=== PATIENT | male | born 1975 ===

== ENCOUNTER 2017-01-31 14:32 | Outpatient (CLI) | payer MEDICAID | END 2017-01-31 14:33 | disposition home or self-care (01) | LOC: LABHHL 14:32 | PROVIDERS: ATTEND Internal Medicine Gastroenterology | DX: K29.51 Unspecified chronic gastritis with bleeding (principal); K64.9 Unspecified hemorrhoids; K92.1 Melena; K30 Functional dyspepsia | CPT/HCPCS: 88305; 88341; 88342 ==